=== PATIENT | female | born 1955 | race African-American/Black ===

== ENCOUNTER 2025-08-08 17:03 | Emergency (ER) | payer MEDICARE, OTHER ==
[~2025-08-08] VITALS: Ht 165.1 cm; Wt 81.7 kg
[~2025-08-08 17:03] MED LIST: AMOXICILLIN500 MG PO; PROVENTIL HFA6.7 GM INH
[2025-08-08 17:10] VITALS: PULSE 70; RESP 18; TEMP 99; O2SAT 97
[2025-08-08] MEDS: KETOROLAC TROMETHAMINE 30 MG/ML VIAL IV ONE (18:41)
[2025-08-08] MEDS: ACETAMINOPHEN 325 MG TAB PO ONE (18:41)
== END 2025-08-08 19:04 | disposition other institution (70) ==
LOC: FSED 17:08
DX: H53.122 Transient visual loss, left eye (principal); I63.9 Cerebral infarction, unspecified; R51.9 Headache, unspecified; I69.354 Hemiplegia and hemiparesis following cerebral infarction affecting left non-dominant side; I10 Essential (primary) hypertension; G62.9 Polyneuropathy, unspecified; G47.00 Insomnia, unspecified; H40.9 Unspecified glaucoma
CPT/HCPCS: 70450; 80053; 85025; 99282; J1885